=== PATIENT | male | born 1995 | race African-American/Black ===

== ENCOUNTER 2019-06-18 23:20 | Emergency (ER) | payer SELFPAY ==
[2019-06-18] MEDS: NALOXONE 2 MG SYG IV (23:22)
== END 2019-06-19 03:09 | disposition home or self-care (01) ==
LOC: E/R 23:20
DX: T39.1X1A Poisoning by 4-Aminophenol derivatives, accidental (unintentional), initial encounter (principal); T40.2X1A Poisoning by other opioids, accidental (unintentional), initial encounter; Y92.9 Unspecified place or not applicable
CPT/HCPCS: 36415; 96374; 99284-25